=== PATIENT | female | born 1955 | race Caucasian/White ===

== ENCOUNTER 2017-05-04 08:41 | Emergency (ER) | payer BC, OTHER ==
[2017-05-04 09:59] LABS: #Eosinphils 0.1 thou/uL (0.0-0.7); #Lymphocytes 0.5 thou/uL (1.20-3.40); #Monocytes 0.5 thou/uL (0.11-0.59); #Neutrophils 2.8 thou/uL (1.40-6.50); %Eosinophils 2.2 % (0.0-10.0); %Lymphocytes 13.5 % (21.0-51.0); %Monocytes 11.7 % (0.0-10.0); Hematocrit 37.3 % (36.0-47.0); Mean Platelet Volume 7.7 fL (7.4-10.4); Red Blood Cell (RBC) Count 3.76 mill/uL (4.20-5.40); White Blood Cell (WBC) Count 3.9 thou/uL (4.8-10.8)
[2017-05-04 10:24] LABS: Troponin I Less than 0.010 ng/mL (< 0.028)
[2017-05-04 10:28] LABS: ALT (SGPT) 10 U/L (8-55); AST (SGOT) 19 U/L (5-34); Alkaline Phosphatase 46 U/L (40-150); Anion Gap 16 mmol/L (10-20); BUN (Urea Nitrogen) 12 mg/dL (9.8-20.1); Bilirubin, Total 1.1 mg/dL (0.2-1.2); CK (CPK) 52 U/L (29-168); Calc. Creatinine Clearance 0 mL/min (70-130); Carbon Dioxide 24 mmol/L (23-31); Chloride 103 mmol/L (98-107); Estimated GFR-MDRD 76; Globulin 3.5 g/dL (2.4-3.5); Protein, Total 7.3 g/dL (6.0-8.3)
--- NOTE | 2017-05-04 11:42 | RAD ---
AP VIEW CHEST; Date: 05/04/17 HISTORY: Cough. Fever which started yesterday. FINDINGS: Comparison made to previous exam from 12/22/16. AP view of chest demonstrates dual lead intracardiac pacing device. Calcification of the aorta is see n. Lungs are well aerated. No evidence of active intrathoracic disease is noted. No evidence of effus ions, pneumonia, or pneumothorax seen. IMPRESSION: Unremarkable AP view chest. POS: [facility]
[2017-05-04 13:26] LABS: Troponin I Less than 0.010 ng/mL (< 0.028)
--- NOTE | 2017-05-04 13:39 | CT ---
CT ANGIO CHEST WITH CONTRAST: Date: 05/04/17 HISTORY: Dyspnea. COMPARISON: Chest radiograph from same date. CT angiogram of chest from 2009. FINDINGS: Pulmonary trunk, as well as left and right main pulmonary arteries are dilated. Thoracic aorta is non aneurysmal. Heart size enlarged. Numerous hypodensities of the liver appear similar to the comparison examination, although are incompletely evaluated. Numerous mildly prominent mediastinal lymph nodes are similar back to 2010. No pulmonary arterial filling defect. Skeleton is unremarkable aside from mild levoscoliosis. No pneumonia. No focal air space consolidatio n, pneumothorax, or effusion. No suspicious pulmonary nodules. IMPRESSION: 1. No segmental pulmonary arterial filling defect. 2. Cardiomegaly. 3. Pulmonary arterial hypertension. 4. Incompletely evaluated hypodensities throughout the liver appear similar dating back to 2009, [place] a benign process. 5. No evidence for pneumonia or other acute intrathoracic abnormality. 6. Mildly prominent mediastinal lymph nodes are similar to the comparison examination, likely reacti ve and chronic. POS: [facility]
[2017-05-04] MEDS ORDERED: ISOVUE-370 76%-LOCM 1 ML ONE (13:42)
== END 2017-05-04 13:56 | disposition home or self-care (01) ==
LOC: ERS 08:41
DX: J11.1 Influenza due to unidentified influenza virus with other respiratory manifestations (principal); I48.91 Unspecified atrial fibrillation; E03.9 Hypothyroidism, unspecified; J45.909 Unspecified asthma, uncomplicated; F32.9 Major depressive disorder, single episode, unspecified; Z79.899 Other long term (current) drug therapy
CPT/HCPCS: 36415; 71010; 71275; 80053; 82550; 82553; 84484; 85025; 85379; 93005

== ENCOUNTER 2018-05-15 10:17 | Outpatient (CLI) | payer BC, OTHER | END 2018-05-15 10:18 | disposition home or self-care (01) | LOC: BICMAMMO 10:17 | PROVIDERS: ATTEND Family Medicine | DX: Z12.31 Encounter for screening mammogram for malignant neoplasm of breast (principal) | CPT/HCPCS: 77063; 77067 ==

== ENCOUNTER 2018-09-30 20:27 | Observation (INO) | payer BC, OTHER ==
--- NOTE | 2018-09-30 20:55 | RAD ---
AP view chest. HISTORY: Chest pain AP view chest obtained on 09/30/2018. Comparison made to previous exam from 05/04/2017. AP view chest demonstrates a dual-lead intracardiac pacing device. The lungs are well aerated. No sienna dence of active intrathoracic disease seen. No evidence of effusions, pneumonia or pneumothorax seen. IMPRESSION: unremarkable AP view chest.
[2018-09-30] MEDS ORDERED: Nitroglycerin 0.4 MG TAB 1 EACH ONE (21:10)
[2018-09-30 22:12] LABS: #Basophils 0.1 thou/uL (0.0-0.2); #Eosinphils 0.4 thou/uL (0.0-0.7); #Lymphocytes 2.5 thou/uL (1.20-3.40); #Monocytes 0.5 thou/uL (0.11-0.59); %Basophils 1.4 % (0.0-1.0); %Eosinophils 6.6 % (0.0-10.0); %Lymphocytes 38.4 % (21.0-51.0); %Monocytes 7.4 % (0.0-10.0); %Neutrophils 46.3 % (42.0-75.0); Hemoglobin 12.1 g/dL (12.0-16.0); Mean Corpuscular HGB CONC 32.1 g/dL (32.0-36.0); Mean Corpuscular Hemoglobin 31.5 pg (27.0-31.0); Mean Corpuscular Volume 97.9 fL (78.0-98.0); Mean Platelet Volume 7.5 fL (7.4-10.4); Platelet Count 206 thou/uL (130-400); RBC Distribution Width 12.2 % (11.5-14.5); Red Blood Cell (RBC) Count 3.84 mill/uL (4.20-5.40); White Blood Cell (WBC) Count 6.5 thou/uL (4.8-10.8)
[2018-09-30 22:39] LABS: ALT (SGPT) 12 U/L (8-55); AST (SGOT) 18 U/L (5-34); Alkaline Phosphatase 56 U/L (40-150); Anion Gap 11 mmol/L (10-20); BUN (Urea Nitrogen) 14 mg/dL (9.8-20.1); Bilirubin, Total 0.4 mg/dL (0.2-1.2); CK (CPK) 113 U/L (29-168); Calc. Creatinine Clearance 0 mL/min (70-130); Calcium 8.6 mg/dL (7.8-10.44); Carbon Dioxide 27 mmol/L (23-31); Chloride 106 mmol/L (98-107); Estimated GFR-MDRD 77; Globulin 2.6 g/dL (2.4-3.5); Glucose 99 mg/dL (80-115); Magnesium 2.3 mg/dL (1.6-2.6); Potassium 4.1 mmol/L (3.5-5.1); Protein, Total 6.6 g/dL (6.0-8.3); Sodium 140 mmol/L (136-145)
--- NOTE | 2018-09-30 23:16 | PDOC.FPRHP ---
- History of Present Illness Chief Complaint: Chest pain History of Present Illness: This is a 62 yo female with a pmh of atrial fibrillation, hypothyroidism, asthma , who presents to the ed with a cc of chest pain. She states the pain started today when she was running errands. She felt tight in her chest. She states the pain feels like a pressure and is associated with palpitations, SOB, and left ankle swelling. She states that the pain is made worse with movement. She saw Dr. Spear 1 week ago and was started on a new med. Pt is to see Dr. Manley on . Pain is at the upper center of her chest. She states it feels like a "gulp." Denies dizziness or light headedness. She felt the pain was like angina and that is why she came. ED Course: Nitro x2 - Allergies/Adverse Reactions Allergies Allergy/AdvReac Type Severity Reaction Status Date / Time codeine Allergy "itch" Verified 10/01/18 01:04 levofloxacin [From Levaquin] Allergy "hallucinat Verified 10/01/18 01:04 e" - Home Medications Medication Instructions Recorded Confirmed Type Magnesium Gluconate [Magonate] 500 mg PO DAILY 04/20/15 09/30/18 History Pantoprazole Sodium 40 mg PO DAILY 04/20/15 09/30/18 History Levothyroxine Sodium 88 mcg PO DAILY 10/02/15 09/30/18 History Montelukast Sodium 10 mg PO DAILY 10/02/15 09/30/18 History Dicyclomine HCl 10 mg PO DAILY PRN 12/22/16 09/30/18 History Cholecalciferol (Vitamin D3) 3,000 unit PO DAILY 09/30/18 09/30/18 History [Vitamin D3] DULoxetine HCl 30 mg PO DAILY 09/30/18 09/30/18 History Fluticasone/Vilanterol [Breo 1 inh IH DAILY 09/30/18 09/30/18 History Ellipta] Pramipexole Di-HCl [Mirapex] 0.25 mg PO DAILY 09/30/18 09/30/18 History Verapamil HCl [Verapamil ER PM] 300 mg PO HS 09/30/18 09/30/18 History - History PMHx: IBS, hypothyroidism, afib, asthma PSHx: Pacemaker, ablation, cholecystectomy, hiatal hernia repair FHx: noncontributory Social: Denies WAYNE - Review of Systems General: reports: fatigue. denies: fever/chills, weight/appetite/sleep changes Eyes: denies: eye pain, vision changes ENT: denies: nasal congestion, rhinorrhea Respiratory: reports: shortness of breath, exercise intolerance. denies: cough , congestion Cardiovascular: reports: chest pain, palpitation, edema. denies: paroxysmal nocturnal dyspnea Gastrointestinal: denies: nausea, vomiting, diarrhea, constipation Musculoskeletal: denies: pain, tenderness Neurological: denies: syncope, weakness Psychological: denies: anxiety, depression - Vital signs BP: 116/78 HR: 72 RR: 18 Tmax: 97.9 Pox: 98% on ra Wt: 98.8 - Physical Exam Constitutional: NAD, awake, alert and oriented, well developed HEENT: normocephalic and atraumatic, PERRLA, EOMI, grossly normal vision, grossly normal hearing, MMM Neck: supple, FROM, trachea midline, no JVD Chest: no-tender to palpation, no lesions Heart: RRR, normal S1/S2, no murmurs/rubs/gallops, pulses present Lungs: CTAB, no respiratory distress, good air movement Abdomen: soft, non-tender, bowel sounds present, no masses/distention Musculoskeletal: normal tone, ROM grossly normal Neurological: CN II-XII intact Skin: capillary refill <2 seconds Heme/Lymphatic: no unusual bruising or bleeding, no purpura Psychiatric: normal mood and affect, intact recent and remote memory FMR H&P: Results - Labs Result Diagrams: 09/30/18 21:54 09/30/18 21:54 Lab results: WBC 6.5 thou/uL (4.8-10.8) 09/30/18 21:54 Hgb 12.1 g/dL (12.0-16.0) 09/30/18 21:54 Hct 37.6 % (36.0-47.0) 09/30/18 21:54 MCV 97.9 fL (78.0-98.0) 09/30/18 21:54 Plt Count 206 thou/uL (130-400) 09/30/18 21:54 Neutrophils % 46.3 % (42.0-75.0) 09/30/18 21:54 Sodium 140 mmol/L (136-145) 09/30/18 21:54 Potassium 4.1 mmol/L (3.5-5.1) 09/30/18 21:54 Chloride 106 mmol/L (98-107) 09/30/18 21:54 Carbon Dioxide 27 mmol/L (23-31) 09/30/18 21:54 BUN 14 mg/dL (9.8-20.1) 09/30/18 21:54 Creatinine 0.76 mg/dL (0.6-1.1) 09/30/18 21:54 Glucose 99 mg/dL (80-115) 09/30/18 21:54 Calcium 8.6 mg/dL (7.8-10.44) 09/30/18 21:54 Total Bilirubin 0.4 mg/dL (0.2-1.2) 09/30/18 21:54 AST 18 U/L (5-34) 09/30/18 21:54 ALT 12 U/L (8-55) 09/30/18 21:54 Alkaline Phosphatase 56 U/L (40-150) 09/30/18 21:54 Creatine Kinase 113 U/L (29-168) 09/30/18 21:54 B-Natriuretic Peptide 40.6 pg/mL (0-100) 09/30/18 21:54 Serum Total Protein 6.6 g/dL (6.0-8.3) 09/30/18 21:54 Albumin 4.0 g/dL (3.4-4.8) 09/30/18 21:54 - Radiology Interpretation Chest x-ray Status: report reviewed by me (Unremarkable cxr) FMR H&P: A/P - Plan Atypical chest pain, ACS R/O -Admit to tele obs -S/P aspirin -Stress test in the morning -Consider calling Dr. Spear, pts night monitor in the AM -Initial troponin: negative, trend x3 -BNP 40.6 -CXR unremarkable, pacemaker in place -TSH pending Afib -S/P pacemaker, currently paced. -continue home meds Hypothyroidism -TSH pending -Continue home meds IBS -Continue home PRN meds Chronic knee pain Code: Full PCP: [employer] Integrator: Dr. Spear EP: Dr. Manley FMR H&P: Upper Level - Pertinent history HPI 64 y/o F with hypothyroidism with IBS, GERD, AFIB, SHERIF, and depression presenting with chest pain. Started at 1500 and pt took 325mg ASA. Pain, pressure and palpitation described while running errands today. Sees Dr Spear outpatient and recently started Verapamil with EP apt soon. S/p nitro administration in ED. REVIEW OF SYSTEMS: Gen: no fever, chills, or sweats, no unexplained wt change Resp: no cough, no SOB, no wheeze Card: chest pain, no palpitations - Pertinent findings PHYSICAL EXAMINATION: General: NAD, alert and oriented x3, sleepy Heart/Cardiovascular System: No r/m/g. RRR. Cap refill < 3 seconds, good pulses in all extremities Lungs/Respiratory System: clear to auscultation bilaterally. No increased work of breathing. Room air. Troponins neg x1, CMP/CBC/CXR unremarkable. - Plan Date/Time: 09/30/18 2313 Kota Sinclair, have evaluated this patient and agree with findings/plan as outlined by customer marketing intern resident. Pertinent changes/additions are listed here. PROBLEM LISTANDPLAN: # Atypical Chest pain- Negative trops and no ST changes on EKG. Stress test in AM. Pt resting comfortably now. # A-Fib- No acute issues, continue home meds. Has pacemaker with EP appt # Hypothyroidism- TSH pending # Irritable Bowel- No acute issues
[2018-10-01] MEDS ORDERED: Acetaminophen 325 MG TAB PO PRN ×2 (00:40→00:41)
[2018-10-01] MEDS ORDERED: Acetaminophen 650 MG Suppository PR PRN (00:41)
[2018-10-01] MEDS ORDERED: Nitroglycerin 0.4 MG TAB (25 Tab Bottle) PO PRN (00:41)
[2018-10-01] MEDS ORDERED: Dicyclomine 10 MG CAP PO PRN (00:41)
[2018-10-01] MEDS ORDERED: Ondansetron ODT 4 MG TAB PO PRN (00:41)
[2018-10-01 00:57] VITALS: BMI 33.1
[2018-10-01 01:48] LABS: Troponin I Less than 0.010 ng/mL (< 0.028)
[2018-10-01] MEDS ORDERED: Levothyroxine Sodium 88 MCG TAB PO SCH (06:00)
[2018-10-01 06:06] LABS: Troponin I Less than 0.010 ng/mL (< 0.028)
[2018-10-01] MEDS ORDERED: Mometasone/Formoterol 120 PUFF INHALER INH SCH (06:30)
[2018-10-01] MEDS ORDERED: Magnesium Oxide 250 MG TAB PO SCH (09:00)
[2018-10-01] MEDS ORDERED: Aspirin 325 mg Enteric Coated Tablet PO SCH (09:00)
[2018-10-01] MEDS ORDERED: Montelukast Sodium 10 mg Tablet PO SCH (09:00)
[2018-10-01] MEDS ORDERED: Pramipexole Di-HCl 0.25 MG TAB PO SCH (09:00)
[2018-10-01] MEDS ORDERED: Non-Formulary Item 1 EACH (Fluticasone/Vilanterol [Breo Ellipta] 1 INH) IH SCH (09:00)
[2018-10-01] MEDS ORDERED: DULoxetine 30 MG CAP PO SCH (09:00)
[2018-10-01 11:52] VITALS: BP 132/60; TEMP 97.7
--- NOTE | 2018-10-01 11:53 | NM ---
EXAM: CARDIAC SPECT HISTORY: Chest pain, atrial fibrillation TECHNIQUE: A myocardial perfusion scan was performed using the single isotope 1 day protocol with trell hnetium 99m sestamibi. [10 mCi] was injected intravenously for the rest exam followed by 30 mCi for the stress study. Pharmacologic stress with Lexiscan was monitored and interpreted by Tiago Gaines, nurse practitioner. FINDINGS: Homogeneous tracer distribution is seen in the myocardial segments on stress and rest image s without fixed or reversible defects. Gated SPECT LVEF: 78% Wall motion exam: Normal IMPRESSION: Normal myocardial perfusion scan
--- NOTE | 2018-10-01 15:34 | PRG ---
DATE OF SERVICE: 10/01/2018 SUBJECTIVE: I have examined the patient and discussed the case with Dr. Jensen. Briefly, Ms. Regan is a pleasant 62-year-old white female with no prior history of coronary artery disease. She presented with some atypical type chest pain. This started when she was running some errands yesterday. She, at that time, felt some tightness and pressure in her chest. PHYSICAL EXAMINATION: VITAL SIGNS: Her blood pressure is 120/78, her heart rate is 70 and regular, 18 respirations. She is afebrile and has a room air pulse ox of 98%. CARDIAC: Heart, rhythm regular. No gallop or murmur noted. LUNGS: Clear. ABDOMEN: Soft. LABORATORY DATA: White count 6500, hemoglobin 12.1. Her troponins are negative x3. All three being less than 0.01. ASSESSMENT: Atypical chest pain. PLAN: Schedule stress Myoview and proceed. Job ID: [id number]
[2018-10-01] MEDS ORDERED: Regadenoson 0.4 MG/5 ML SYRINGE ONE (16:05)
[2018-10-01] MEDS ORDERED: Verapamil PM 100 MG CAP PO SCH (21:00)
--- NOTE | 2018-10-02 14:04 | DIS ---
DATE OF ADMISSION: 10/01/2018 DATE OF DISCHARGE: 10/01/2018 ADMITTING ATTENDING: Dr. Gera Sanford. DISCHARGE ATTENDING: Dr. Gera Sanford. RESIDENT: Venkatesh Guerra DO. CONSULTS: None. PROCEDURES: None. IMAGIN. Chest x-ray significant for no acute cardiopulmonary process. 2. Nuclear medicine stress test significant for normal myocardial perfusion scan. DISCHARGE DIAGNOSES: 1. Pantoprazole 40 mg p.o. daily. 2. Magnesium 500 mg p.o. daily. 3. Levothyroxine 88 mcg p.o. daily. 4. Montelukast 10 mg p.o. daily. 5. Dicyclomine 10 mg p.o. daily. 6. Verapamil 300 mg p.o. at bedtime. 7. Breo one inhaler inhaled daily. 8. Duloxetine 30 mg p.o. daily. 9. Vitamin D3 of 3000 units p.o. daily. 10. Mirapex 0.25 mg p.o. daily. PRIMARY DIAGNOSIS: Atypical chest pain. SECONDARY DIAGNOSES: 1. Atrial fibrillation. 2. Hypothyroid. 3. Irritable bowel syndrome. 4. Chronic knee pain. HOSPITAL COURSE: A 62-year-old female with past medical history of atrial fibrillation, hypothyroid, asthma, presents to the emergency department with an atypical chest pain story. She reported at time of admission that the pain started earlier that day, tightness in her chest with palpitations, shortness of breath, left ankle swelling. Reports the pain is made worse by movement. She has recently seen Dr. Spear, Cardiology and Dr. Manley of Electrophysiology for similar type complaints with no changes in medication. She received nitroglycerin x2 in the emergency department with resolution of her pain. Troponins remained negative x3. EKG within normal limits. The patient underwent nuclear medicine stress and tolerated that well, negative study. She was deemed stable for discharge home with close followup by PCP. DISCHARGE INSTRUCTIONS: 1. Location: Home. 2. Activity: As tolerated. 3. Diet: Heart healthy, low-sodium. 4. Follow up with PCP immediately in the next 3 to 7 days and, Cardiology Dr. Bijan Spear in the next month. Job ID: [id number]
== END 2018-10-01 13:37 | disposition home or self-care (01) ==
LOC: ERS 20:27 → 2SW 10-01 00:31
PROVIDERS: ADMIT Hospitalist; ATTEND Hospitalist
DX: R07.89 Other chest pain (principal); I48.91 Unspecified atrial fibrillation; E03.9 Hypothyroidism, unspecified; J45.909 Unspecified asthma, uncomplicated; K58.9 Irritable bowel syndrome, unspecified; G89.29 Other chronic pain; M25.569 Pain in unspecified knee; Z79.899 Other long term (current) drug therapy; Z88.1 Allergy status to other antibiotic agents; Z88.5 Allergy status to narcotic agent; Z95.0 Presence of cardiac pacemaker
CPT/HCPCS: 36415; 71045; 78452; 80053; 80061; 82550; 83735; 83880; 84443; 84484; 85025; 93005; 93017; A9500; G0378; J2785

== ENCOUNTER 2018-11-26 13:02 | Outpatient (CLI) | payer BC, OTHER ==
--- NOTE | 2018-11-26 14:01 | ULT ---
ULTRASOUND THYROID: Date: 11/26/18 HISTORY: Hypothyroidism. COMPARISON: None. FINDINGS: Isthmus is enlarged, measuring 6 mm in AP dimension. Right lobe measures 4.6 x 1.8 x 2.3 cm. Left lob e measures 3.2 x 1.3 x 1.6 cm. The background echotexture is very lobular and heterogeneous. Large in ternal fibrous septations. Within the inferior right lobe of the thyroid is a nodule which is solid a nd hypoechoic, wider than tall, measuring 0.9 x 0.7 x 0.8 cm, with well-defined margins without isoec hoic foci. This is TI-RADS 3 - Mildly suspicious. Given its small size, no follow-up or aspiration is required. IMPRESSION: 1. Heterogeneous thyroid with large internal fibrous septations has the appearance of burned-out hyp erthyroidism. 2. Small nodule inferior right lobe of thyroid, does not require aspiration or follow-up per TI-RADS criteria. POS: HOME
== END 2018-11-26 13:03 | disposition home or self-care (01) ==
LOC: SCSULT 13:02
PROVIDERS: ATTEND Internal Medicine Hospice and Palliative Medicine
DX: E03.9 Hypothyroidism, unspecified (principal); R94.6 Abnormal results of thyroid function studies; E04.1 Nontoxic single thyroid nodule
CPT/HCPCS: 76536

== ENCOUNTER 2019-04-17 08:37 | Outpatient (CLI) | payer BC, OTHER ==
--- NOTE | 2019-04-17 12:57 | CT ---
CT ABDOMEN AND PELVIS WITH AND WITHOUT IV CONTRAST: HISTORY: History of back pain radiating to both hips and abdominal bloating with tenderness in the anterior ab domen. Abdominal pain. COMPARISON: 05/17/2016 FINDINGS: The lung bases are clear. Changes of cholecystectomy are again seen. Multiple cysts throughout the li long are again noted. The spleen, pancreas, adrenal glands and kidneys are normal. No calculi are seen in the kidneys, ureters or urinary bladder. No hydroureteronephrosis is seen on either side. No free air, free fluid or lymphadenopathy is seen in the abdomen or pelvis. There are vascular calci fications without evidence of aneurysmal dilatation of the abdominal aorta. There are mild degenerati ve changes in the spine. A small hiatal hernia is again seen. IMPRESSION: 1. Stable examination. No acute process. 2. A small, fat-containing umbilical hernia is noted. POS: [facility]
== END 2019-04-17 08:38 | disposition home or self-care (01) ==
LOC: SCSCT 08:37
PROVIDERS: ATTEND Family Medicine
DX: R10.9 Unspecified abdominal pain (principal); M53.3 Sacrococcygeal disorders, not elsewhere classified; K42.9 Umbilical hernia without obstruction or gangrene
CPT/HCPCS: 74178; 82565

== ENCOUNTER 2019-12-03 09:34 | Outpatient (CLI) | payer BC ==
--- NOTE | 2019-12-03 12:13 | RAD ---
Esophagram air contrast HISTORY: Dysphagia. Prior Duong fundoplication. Esophageal dilatation. Air contrast and single column barium evaluation shows a very small sliding hiatal hernia. Postoperat crissy changes at the GE junction consistent with prior Duong fundoplication. Early in the exam, the GE junction appears to be widely patent with liquid. A 12 mm barium tablet, ho wever, lodged just at the GE junction for up to 45 minutes. Fluid then became obstructed at the impacted tablet. There were then severe nonpropulsive tertiary type contractions of the esophagus. IMPRESSION : Very small hiatal hernia. Schatzki's ring initially allowed easy passage of liquid, but a 12 mm bariu m tablet became severely obstructive and lodged at the ring, so that even fluid could not pass for up to 45 minutes.
== END 2019-12-03 09:35 | disposition home or self-care (01) ==
LOC: RAD 09:34
PROVIDERS: ATTEND Physician Assistant Medical
DX: R13.10 Dysphagia, unspecified (principal); K22.2 Esophageal obstruction; K44.9 Diaphragmatic hernia without obstruction or gangrene
CPT/HCPCS: 74220

== ENCOUNTER 2020-01-25 09:42 | Outpatient (CLI) | payer BC ==
--- NOTE | 2020-01-25 18:36 | RAD ---
4 views of the sacroiliac joints: 01/25/2020 COMPARISON: None available HISTORY: Back pain FINDINGS: No widening of the sacroiliac joints. There is mild degenerative change involving bilateral sacroiliac joints with inferior osteophyte formation. No erosive change. IMPRESSION: No acute findings.
== END 2020-01-25 09:43 | disposition home or self-care (01) ==
LOC: SCSRAD 09:42
PROVIDERS: ATTEND Internal Medicine Rheumatology
DX: M46.1 Sacroiliitis, not elsewhere classified (principal)
CPT/HCPCS: 72202

== ENCOUNTER 2020-03-03 13:42 | Outpatient (CLI) | payer BC ==
--- NOTE | 2020-03-03 14:13 | RAD ---
EXAM: Two views chest PROVIDED CLINICAL HISTORY: Cough and chest pressure for past week. COMPARISON: 08/11/2019 FINDINGS: Dual lead left subclavian cardiac pacemaking device remains in place. Cardiac silhouette is at the up per limits of normal in size. Pulmonary vasculature is within normal limits The lungs are clear. Mild left convex curvature of the thoracic spine is again noted. Vascular calcifications are again se en in the thoracic aorta. Surgical clips overlie the upper abdomen. IMPRESSION: No acute cardiopulmonary process.
== END 2020-03-03 13:43 | disposition home or self-care (01) ==
LOC: SCSRAD 13:42
PROVIDERS: ATTEND Family Medicine
DX: R05 Cough (principal)
CPT/HCPCS: 71046

== ENCOUNTER 2020-06-10 11:11 | Outpatient (CLI) | payer OTHER | END 2020-06-10 11:12 | disposition home or self-care (01) | LOC: DTY/OP 11:11 | PROVIDERS: ATTEND Family Medicine | DX: E66.9 Obesity, unspecified (principal) | CPT/HCPCS: 97802 ==

== ENCOUNTER 2020-10-20 10:44 | Emergency (ER) | payer OTHER, BC ==
[2020-10-20 11:59] LABS: #Basophils 0.1 thou/uL (0.0-0.2); #Eosinphils 0.3 thou/uL (0.0-0.7); #Monocytes 0.6 thou/uL (0.11-0.59); #Neutrophils 4.4 thou/uL (1.40-6.50); %Basophils 1.3 % (0.0-1.0); %Eosinophils 4.5 % (0.0-10.0); %Monocytes 7.9 % (0.0-10.0); %Neutrophils 59.3 % (42.0-75.0); Hemoglobin 13.5 g/dL (12.0-16.0); Mean Corpuscular Hemoglobin 32.5 pg (27.0-31.0); Mean Platelet Volume 7.4 fL (7.4-10.4); Platelet Count 234 thou/uL (130-400); RBC Distribution Width 11.6 % (11.5-14.5); Red Blood Cell (RBC) Count 4.17 mill/uL (4.20-5.40); White Blood Cell (WBC) Count 7.4 thou/uL (4.8-10.8)
[2020-10-20 12:21] LABS: ALT (SGPT) 12 U/L (8-55); AST (SGOT) 15 U/L (5-34); Alkaline Phosphatase 46 U/L (40-110); Anion Gap 9 mmol/L (10-20); BUN (Urea Nitrogen) 16 mg/dL (9.8-20.1); Calc. Creatinine Clearance 0 mL/min (70-130); Calcium 9.2 mg/dL (7.8-10.44); Carbon Dioxide 27 mmol/L (23-31); Chloride 105 mmol/L (98-107); Globulin 3.6 g/dL (2.4-3.5); Glucose 88 mg/dL (80-115); Lipase 26 U/L (8-78); Potassium 3.8 mmol/L (3.5-5.1); Protein, Total 7.6 g/dL (5.8-8.1); Sodium 137 mmol/L (136-145)
[2020-10-20] MEDS ORDERED: Aspirin Chewable 81 MG TAB ONE (13:13)
[2020-10-20] MEDS ORDERED: Nitroglycerin 2% Ointment 1 INCH/1 GM Packet ONE (13:13)
[2020-10-20] MEDS ORDERED: Fentanyl 100 MCG/2 ML VIAL ONE (13:13)
== END 2020-10-20 15:25 | disposition short-term general hospital (02) ==
LOC: ERS 10:44
DX: I20.0 Unstable angina (principal); I48.91 Unspecified atrial fibrillation; E03.9 Hypothyroidism, unspecified; Z79.899 Other long term (current) drug therapy
CPT/HCPCS: 71045; 80053; 83690; 84484; 85025; 93005; 94760; 96374; J3010

== ENCOUNTER 2021-03-30 09:13 | Outpatient (CLI) | payer OTHER, MEDICARE | END 2021-03-30 09:14 | disposition home or self-care (01) | LOC: NM 09:13 | DX: M84.374A Stress fracture, right foot, initial encounter for fracture (principal) | CPT/HCPCS: 78315; A9503 ==

== ENCOUNTER 2021-09-08 11:00 | Outpatient (CLI) | payer BC, MEDICARE ==
[2021-09-08 12:05] LABS: #Basophils 0.1 10x3/uL (0.0-0.2); #Eosinphils 0.2 10x3/uL (0.0-0.5); #Monocytes 0.6 10x3/uL (0.0-1.1); #Neutrophils 3.7 10x3/uL (1.5-8.4); %Basophils 1.1 % (0.0-2.0); %Eosinophils 3.5 % (0.0-6.0); %Lymphocytes 27.4 % (18.0-47.0); %Monocytes 9.2 % (0.0-10.0); %Neutrophils 58.5 % (40.0-75.0); Hemoglobin 12.5 g/dL (12.0-15.5); Mean Corpuscular HGB CONC 33.2 g/dL (32.0-36.0); Mean Corpuscular Hemoglobin 31.3 pg (27.0-33.0); Mean Platelet Volume 10.3 fl (7.4-10.4); Platelet Count 220 10x3/uL (150-450); RBC Distribution Width 12.8 % (11.5-14.5); White Blood Cell (WBC) Count 6.3 10x3/uL (3.5-10.5)
[2021-09-08 22:54] LABS: SARS-CoV-2 PCR by NAA Not Detected (NotDetected)
== END 2021-09-08 11:01 | disposition home or self-care (01) ==
LOC: LABBT 11:00
PROVIDERS: ATTEND Surgery
DX: Z01.818 Encounter for other preprocedural examination (principal); K22.2 Esophageal obstruction; Z20.822 Contact with and (suspected) exposure to COVID-19
CPT/HCPCS: 85025; 93005; 93010; U0003; U0005

== ENCOUNTER 2021-09-13 08:12 | Inpatient (IN) | payer BC, MEDICARE ==
[2021-09-08 13:44] VITALS: BMI 31.9
[2021-09-13] MEDS ORDERED: Bupivacaine 0.25% 10 ML VIAL ONE (11:08)
[2021-09-13] MEDS ORDERED: Lidocaine 1% w/Epinephrine 1:100K 20 ML VIAL ONE (11:09)
[2021-09-13] MEDS ORDERED: SUGAMMADEX SODIUM 200 MG/2 ML VIAL ONE (11:52)
[2021-09-13] MEDS ORDERED: ceFAZolin (BATCH) 2 GM/100 ML BAG ONE (11:52)
[2021-09-13] MEDS ORDERED: fentaNYL Citrate/PF 100 MCG/2 ML SYRINGE ONE ×2 (11:52→13:03)
[2021-09-13] MEDS ORDERED: Famotidine/PF 20 mg/2ml Vial ONE (11:52)
[2021-09-13] MEDS ORDERED: Metoclopramide HCl 10 MG/2 ML VIAL ONE (11:58)
[2021-09-13] MEDS ORDERED: PHENYLEPHRINE-NS 100 MCG/ML 10 ML SYRINGE ONE (11:58)
[2021-09-13] MEDS ORDERED: Ketorolac Tromethamine 30 MG/ML VIAL ONE (11:58)
[2021-09-13] MEDS ORDERED: Lidocaine 1% PF 5 ML VIAL ONE (11:58)
[2021-09-13] MEDS ORDERED: PROPOFOL 200 MG/20 ML VIAL ONE (11:58)
[2021-09-13] MEDS ORDERED: Rocuronium Bromide 10 MG/ML (10ML VIAL) ONE (11:58)
[2021-09-13] MEDS ORDERED: Dexamethasone 20 MG/5 ML VIAL ONE (11:58)
[2021-09-13] MEDS ORDERED: Ondansetron PF 4 MG/2 ML Vial ONE (11:58)
[2021-09-13] MEDS ORDERED: Dextrose 5% in Water 1,000 ML IV PRN (13:41)
[2021-09-13] MEDS ORDERED: Promethazine HCl 25 MG/ML VIAL IM PRN ×2 (13:41→13:55)
[2021-09-13] MEDS ORDERED: Hydrocodone-Acetamin 15 ML UDCUP PO PRN (13:41)
[2021-09-13] MEDS ORDERED: Morphine 2 MG/ML VIAL SLOW IVP PRN (13:41)
[2021-09-13] MEDS ORDERED: Ondansetron PF 4 MG/2 ML Vial IVP PRN (13:41)
[2021-09-13] MEDS ORDERED: diphenhydrAMINE 50 MG/ML VIAL IVP PRN (13:41)
[2021-09-13] MEDS ORDERED: hydrALAZINE 20 MG/ML VIAL SLOW IVP PRN (13:41)
[2021-09-13] MEDS ORDERED: Morphine 4 MG/ML VIAL SLOW IVP PRN (13:41)
[2021-09-13] MEDS ORDERED: Dextrose 50% Abboject 50 ML SYRINGE SLOW IVP PRN (13:41)
[2021-09-13] MEDS ORDERED: Fentanyl 100 MCG/2 ML VIAL ONE ×2 (13:54→14:28)
[2021-09-13] MEDS ORDERED: Promethazine HCl 25 MG/ML VIAL IVPB PRN (13:55)
[2021-09-13] MEDS ORDERED: Meperidine HCl/PF 25 MG/ML VIAL SLOW IVP PRN (13:55)
[2021-09-13] MEDS ORDERED: Ondansetron HCl/PF 4 MG/2 ML Vial IVP PRN (13:55)
[2021-09-13] MEDS ORDERED: D5 1/2 NS w/20 mEq KCL 1,000 ML ONE (14:10)
[2021-09-13] MEDS: D5 1/2 NS w/20 mEq KCL 1,000 ML IV SCH (14:16)
[2021-09-13] MEDS: Ketorolac Tromethamine 30 MG/ML VIAL IVP SCH (17:53)
[2021-09-13] MEDS: ceFAZolin (BATCH) 2 GM in Premix Bag 1 BAG IVPB SCH (20:11)
[2021-09-14] MEDS: D5 1/2 NS w/20 mEq KCL 1,000 ML IV SCH ×2 (00:18→05:50)
[2021-09-14] MEDS: Ketorolac Tromethamine 30 MG/ML VIAL IVP SCH ×2 (00:35→05:51)
[2021-09-14] MEDS: ceFAZolin (BATCH) 2 GM in Premix Bag 1 BAG IVPB SCH (04:53)
[2021-09-14 05:20] LABS: #Lymphocytes 1.3 thou/uL (1.20-3.40); #Monocytes 0.6 thou/uL (0.11-0.59); %Basophils 0.3 % (0.0-1.0); %Eosinophils 0.3 % (0.0-10.0); %Lymphocytes 16.1 % (21.0-51.0); %Monocytes 7.1 % (0.0-10.0); %Neutrophils 76.1 % (42.0-75.0); Hemoglobin 12.1 g/dL (12.0-16.0); Mean Corpuscular HGB CONC 32.7 g/dL (32.0-36.0); Mean Corpuscular Hemoglobin 32.7 pg (27.0-31.0); Mean Platelet Volume 7.3 fL (7.4-10.4); Platelet Count 221 thou/uL (130-400); RBC Distribution Width 11.8 % (11.5-14.5); White Blood Cell (WBC) Count 7.8 thou/uL (4.8-10.8)
[2021-09-14 05:42] LABS: Anion Gap 12 mmol/L (10-20); BUN (Urea Nitrogen) 14 mg/dL (9.8-20.1); Calc. Creatinine Clearance 128 mL/min (70-130); Carbon Dioxide 23 mmol/L (23-31); Chloride 106 mmol/L (98-107); Glucose 102 mg/dL (80-115); Potassium 3.9 mmol/L (3.5-5.1); Sodium 137 mmol/L (136-145)
[2021-09-14 08:03] VITALS: BP 104/66; TEMP 98
[2021-09-14] MEDS ORDERED: Pantoprazole 40 MG VIAL IVP SCH (09:00)
[2021-09-14] MEDS ORDERED: Enoxaparin Sodium 40 MG/0.4 ML SYRINGE SC SCH (09:00)
== END 2021-09-14 11:15 | disposition home or self-care (01) | DRG 328 ==
LOC: SDC 08:12 → SJJU 13:41
PROVIDERS: ADMIT Surgery; ATTEND Surgery
PROC: 0DV44ZZ Restriction of Esophagogastric Junction, Percutaneous Endoscopic Approach (ICD-10-PCS; principal; 2021-09-13)
PROC: 0DJ08ZZ Inspection of Upper Intestinal Tract, Via Natural or Artificial Opening Endoscopic (ICD-10-PCS; 2021-09-13)
DX: K31.1 Adult hypertrophic pyloric stenosis (principal); K22.2 Esophageal obstruction; Z79.899 Other long term (current) drug therapy; Z79.890 Hormone replacement therapy; Z88.1 Allergy status to other antibiotic agents; Z88.5 Allergy status to narcotic agent
CPT/HCPCS: 36415; 80048; 85025; C9113; J0690; J1100; J1650; J1885; J2405; J2704; J2765; J3010; J3480; S0020; S0028

== ENCOUNTER 2021-11-09 15:29 | Outpatient (CLI) | payer BC, MEDICARE | END 2021-11-09 15:30 | disposition home or self-care (01) | LOC: SCSRAD 15:29 | PROVIDERS: ATTEND Family Medicine | DX: J98.4 Other disorders of lung (principal) | CPT/HCPCS: 71046 ==

== ENCOUNTER 2022-06-20 07:41 | Outpatient (CLI) | payer BC, MEDICARE | END 2022-06-20 07:42 | disposition home or self-care (01) | LOC: NM 07:41 | PROVIDERS: ATTEND Internal Medicine Gastroenterology | DX: K21.9 Gastro-esophageal reflux disease without esophagitis (principal); K30 Functional dyspepsia | CPT/HCPCS: 78264; A9541 ==

== ENCOUNTER 2022-07-19 12:33 | Outpatient (CLI) | payer BC, MEDICARE | END 2022-07-19 12:34 | disposition home or self-care (01) | LOC: SCSRAD 12:33 | PROVIDERS: ATTEND Internal Medicine Rheumatology | DX: M81.0 Age-related osteoporosis without current pathological fracture (principal); M47.814 Spondylosis without myelopathy or radiculopathy, thoracic region; M51.34 Other intervertebral disc degeneration, thoracic region; M25.78 Osteophyte, vertebrae; M41.9 Scoliosis, unspecified; I70.0 Atherosclerosis of aorta; Z95.0 Presence of cardiac pacemaker | CPT/HCPCS: 72072 ==

== ENCOUNTER 2022-08-20 11:40 | Outpatient (CLI) | payer MEDICARE, OTHER ==
[2022-08-20 13:57] LABS: Anion Gap 17 mmol/L (10-20); BUN (Urea Nitrogen) 24 mg/dL (9.8-20.1); Calc. Creatinine Clearance 0 mL/min (70-130); Calcium 8.8 mg/dL (7.8-10.44); Carbon Dioxide 25 mmol/L (23-31); Chloride 96 mmol/L (98-107); Estimated GFR 39; Glucose 79 mg/dL (80-115); Potassium 4.1 mmol/L (3.5-5.1); Protein, Total 7.3 g/dL (5.8-8.1); Sodium 134 mmol/L (136-145)
[2022-08-20 13:58] LABS: ALT (SGPT) 13 U/L (8-55); AST (SGOT) 20 U/L (5-34); Alkaline Phosphatase 49 U/L (40-110); Globulin 3.3 g/dL (2.4-3.5)
[2022-08-20 14:03] LABS: #Basophils 0.1 10x3/uL (0.0-0.2); #Eosinphils 0.2 10x3/uL (0.0-0.5); #Monocytes 0.4 10x3/uL (0.0-1.1); #Neutrophils 3.8 10x3/uL (1.5-8.4); %Basophils 1.7 % (0.0-2.0); %Eosinophils 3.3 % (0.0-6.0); %Lymphocytes 31.2 % (18.0-47.0); %Monocytes 6.3 % (0.0-10.0); %Neutrophils 56.4 % (40.0-75.0); Hemoglobin 11.6 g/dL (12.0-15.5); Mean Corpuscular HGB CONC 32.4 g/dL (32.0-36.0); Mean Corpuscular Hemoglobin 31.8 pg (27.0-33.0); Mean Corpuscular Volume 98.1 fl (81.6-98.3); Platelet Count 277 10x3/uL (150-450); RBC Distribution Width 12.9 % (11.5-14.5); Red Blood Cell (RBC) Count 3.65 10x6/uL (3.90-5.03); White Blood Cell (WBC) Count 6.7 10x3/uL (3.5-10.5)
== END 2022-08-20 11:41 | disposition home or self-care (01) ==
LOC: LABBT 11:40
PROVIDERS: ATTEND Surgery
DX: Z01.818 Encounter for other preprocedural examination (principal); K30 Functional dyspepsia; K31.84 Gastroparesis; K31.89 Other diseases of stomach and duodenum
CPT/HCPCS: 80053; 85025; 93005; 93010

== ENCOUNTER 2022-08-20 12:15 | Inpatient (IN) | payer MEDICARE, OTHER ==
[2022-08-22] MEDS ORDERED: Bupivacaine/Epinephrine 0.25% 30 ML VIAL ONE (06:51)
[2022-08-22] MEDS ORDERED: Midazolam HCl 2 mg/2 ml Vial ONE (07:00)
[2022-08-22] MEDS ORDERED: Fentanyl 250 MCG/5 ML VIAL ONE (07:00)
[2022-08-22] MEDS ORDERED: HYDROmorphone 0.5 MG/0.5 ML SYRINGE ONE (07:01)
[2022-08-22] MEDS ORDERED: Lidocaine 4% Topical Sol 50 ML BOT ONE (07:01)
[2022-08-22] MEDS ORDERED: SUGAMMADEX SODIUM 200 MG/2 ML VIAL ONE (07:01)
[2022-08-22] MEDS ORDERED: CEFAZOLIN 2 GM VIAL ONE (07:25)
[2022-08-22] MEDS ORDERED: Sodium Chloride 0.9% 100 ML ONE (07:25)
[2022-08-22] MEDS ORDERED: Famotidine/PF 20 mg/2ml Vial ONE (07:28)
[2022-08-22] MEDS ORDERED: Metoclopramide HCl 10 MG/2 ML VIAL ONE (07:44)
[2022-08-22] MEDS ORDERED: Phenylephrine 10 MG/ML VIAL ONE (07:44)
[2022-08-22] MEDS ORDERED: PROPOFOL 200 MG/20 ML VIAL ONE (07:44)
[2022-08-22] MEDS ORDERED: NEOSTIGMINE 3 MG/3 ML SYR 3 MG/3 ML SYRINGE ONE (07:44)
[2022-08-22] MEDS ORDERED: Lidocaine 1% PF 5 ML VIAL ONE (07:44)
[2022-08-22] MEDS ORDERED: Vecuronium 10 MG VIAL ONE (07:44)
[2022-08-22] MEDS ORDERED: Ondansetron PF 4 MG/2 ML Vial ONE ×2 (07:44→11:20)
[2022-08-22] MEDS ORDERED: Rocuronium Bromide 10 MG/ML (10ML VIAL) ONE (07:44)
[2022-08-22] MEDS ORDERED: Dexamethasone 20 MG/5 ML VIAL ONE (07:44)
[2022-08-22] MEDS ORDERED: GLYCOPYRROLATE/PF 0.2 MG/ML VIAL ONE (07:44)
[2022-08-22] MEDS ORDERED: Promethazine HCl 25 MG/ML VIAL ONE (10:34)
[2022-08-22] MEDS ORDERED: Ipratropium/Albuterol 3 ML NEB NEB PRN (10:36)
[2022-08-22] MEDS ORDERED: Dextrose 5% in Water 1,000 ML IV PRN (10:36)
[2022-08-22] MEDS ORDERED: Morphine 4 MG/ML VIAL SLOW IVP PRN (10:36)
[2022-08-22] MEDS ORDERED: Ondansetron PF 4 MG/2 ML Vial IVP PRN (10:36)
[2022-08-22] MEDS ORDERED: Morphine 2 MG/ML VIAL SLOW IVP PRN (10:36)
[2022-08-22] MEDS ORDERED: Promethazine HCl 25 MG/ML VIAL IM PRN (10:36)
[2022-08-22] MEDS ORDERED: Dextrose 50% Abboject 50 ML SYRINGE SLOW IVP PRN (10:36)
[2022-08-22] MEDS ORDERED: diphenhydrAMINE 50 MG/ML VIAL IVP PRN (10:36)
[2022-08-22] MEDS ORDERED: hydrALAZINE 20 MG/ML VIAL SLOW IVP PRN (10:36)
[2022-08-22] MEDS ORDERED: Hydrocodone-Acetamin 15 ML UDCUP PO PRN (10:36)
[2022-08-22] MEDS ORDERED: fentaNYL 50 mcg/mL 1 mL Vial ONE ×3 (10:40→12:22)
[2022-08-22] MEDS ORDERED: Non-Formulary Medication 1 EACH PO PRN (10:54)
[2022-08-22] MEDS ORDERED: Ondansetron HCl/PF 4 MG/2 ML Vial IVP PRN (11:00)
[2022-08-22] MEDS ORDERED: Promethazine HCl 25 MG/ML VIAL IM/IV PRN (11:00)
[2022-08-22] MEDS ORDERED: diphenhydrAMINE 50 MG/ML VIAL ONE (12:09)
[2022-08-22] MEDS ORDERED: D5 1/2 NS w/20 mEq KCL 1,000 ML ONE (12:22)
[2022-08-22] MEDS: D5 1/2 NS w/20 mEq KCL 1,000 ML IV SCH ×3 (13:59→21:45)
[2022-08-22] MEDS: CEFAZOLIN 2 GM in Sodium Chloride 0.9% 100 ML IVPB SCH ×2 (14:12→21:45)
[2022-08-22] MEDS: Ketorolac Tromethamine 30 MG/ML VIAL IVP SCH ×3 (14:12→23:42)
[2022-08-22] MEDS ORDERED: Artificial Tear Sol 15 ML BOT EA EYE PRN (16:51)
[2022-08-22] MEDS ORDERED: Sodium Chloride 0.9% 1,000 ML IV SCH (20:00)
[2022-08-22 20:15] LABS: Hemoglobin 10.8 g/dL (12.0-16.0)
[2022-08-22 22:03] LABS: Actual Bicarbonate (HCO3v) 23 mEq/L (22-28); Base Excess -0.8 mEq/L (-2.0 to +3.0); Chloride (VBG) 101 mmol/L (98-106); Hemoglobin (Hb) 11.5 g/dL (11.7-16.1); Potassium (VBG) 3.85 mmol/L (3.70-5.30); Sodium 133.8 mmol/L (133-146); pH (venous) 7.43 (7.32-7.43)
[2022-08-22 22:24] LABS: Lactic Acid 1.7 mmol/L (0.5-2.2)
[2022-08-22] MEDS ORDERED: Sodium Chloride 0.9% 500 ML IV SCH (22:30)
[2022-08-22 22:35] LABS: ALT (SGPT) 20 U/L (8-55); AST (SGOT) 36 U/L (5-34); Albumin 3.3 g/dL (3.4-4.8); Alkaline Phosphatase 38 U/L (40-110); Anion Gap 16 mmol/L (10-20); BUN (Urea Nitrogen) 25 mg/dL (9.8-20.1); Bilirubin, Total 0.6 mg/dL (0.2-1.2); Calc. Creatinine Clearance 57 mL/min (70-130); Calcium 7.8 mg/dL (7.8-10.44); Carbon Dioxide 19 mmol/L (23-31); Chloride 103 mmol/L (98-107); Estimated GFR 41; Globulin 2.9 g/dL (2.4-3.5); Glucose 135 mg/dL (80-115); Potassium 3.8 mmol/L (3.5-5.1); Protein, Total 6.2 g/dL (5.8-8.1); Sodium 134 mmol/L (136-145)
[2022-08-22] MEDS ORDERED: NOREPINEPHRINE 8 MG/250 ML-D5W 250 ML IVPB SCH (23:45)
[2022-08-22] MEDS ORDERED: Albumin 25% 25 GM/100 ML BOT IVPB SCH (23:45)
[2022-08-23 01:25] VITALS: BMI 31.6
[2022-08-23 03:35] LABS: #Lymphocytes 1.4 thou/uL (1.20-3.40); #Monocytes 0.7 thou/uL (0.11-0.59); #Neutrophils 7.3 thou/uL (1.40-6.50); %Basophils 0.1 % (0.0-1.0); %Eosinophils 0.3 % (0.0-10.0); %Lymphocytes 14.6 % (21.0-51.0); %Monocytes 7.2 % (0.0-10.0); %Neutrophils 77.8 % (42.0-75.0); Hemoglobin 9.2 g/dL (12.0-16.0); Mean Corpuscular HGB CONC 34.2 g/dL (32.0-36.0); Mean Corpuscular Volume 99.3 fl (78.0-98.0); Mean Platelet Volume 9.4 fL (7.4-10.4); Platelet Count 222 10x3/uL (130-400); RBC Distribution Width 11.7 % (11.5-14.5); Red Blood Cell (RBC) Count 2.71 mill/uL (4.20-5.40); White Blood Cell (WBC) Count 9.3 10x3/uL (4.8-10.8)
[2022-08-23 04:12] LABS: Anion Gap 14 mmol/L (10-20); BUN (Urea Nitrogen) 23 mg/dL (9.8-20.1); Calc. Creatinine Clearance 58 mL/min (70-130); Calcium 7.4 mg/dL (7.8-10.44); Carbon Dioxide 19 mmol/L (23-31); Chloride 105 mmol/L (98-107); Estimated GFR 41; Glucose 160 mg/dL (80-115); Magnesium 2.1 mg/dL (1.6-2.6); Potassium 4.3 mmol/L (3.5-5.1); Sodium 134 mmol/L (136-145)
[2022-08-23] MEDS: Levothyroxine Sodium 112 MCG TAB PO SCH (05:14)
[2022-08-23] MEDS: Ketorolac Tromethamine 30 MG/ML VIAL IVP SCH ×4 (05:14→23:30)
[2022-08-23] MEDS: D5 1/2 NS w/20 mEq KCL 1,000 ML IV SCH (05:15)
[2022-08-23] MEDS: Pantoprazole 40 MG VIAL IVP SCH (08:17)
[2022-08-23 08:44] LABS: Hemoglobin 9.7 g/dL (12.0-16.0)
[2022-08-23] MEDS: Dextrose 5 % And 0.9 % NaCl 1,000 ML IV SCH ×3 (09:55→23:30)
[2022-08-23 14:07] LABS: Hemoglobin 9.6 g/dL (12.0-16.0)
[2022-08-23] MEDS ORDERED: Sodium Chloride 0.9% 500 ML IV SCH (15:00)
[2022-08-23] MEDS ORDERED: Dexamethasone 4 mg/ml Vial SLOW IVP SCH (15:45)
[2022-08-23 20:03] LABS: Hemoglobin 9.8 g/dL (12.0-16.0)
[2022-08-24 02:49] LABS: Hemoglobin 9.1 g/dL (12.0-16.0)
[2022-08-24] MEDS: Ketorolac Tromethamine 30 MG/ML VIAL IVP SCH ×4 (05:39→23:36)
[2022-08-24] MEDS: Levothyroxine Sodium 112 MCG TAB PO SCH (05:39)
[2022-08-24 07:29] LABS: Hemoglobin 8.6 g/dL (12.0-16.0)
[2022-08-24] MEDS: Dextrose 5 % And 0.9 % NaCl 1,000 ML IV SCH ×2 (09:41→16:41)
[2022-08-24] MEDS: Pantoprazole 40 MG VIAL IVP SCH (10:17)
[2022-08-24] MEDS ORDERED: Lactated Ringer's 500 ML IV SCH (13:00)
[2022-08-24] MEDS ORDERED: Dextrose 5 % And 0.9 % NaCl 1,000 ML IV SCH (17:15)
[2022-08-24] MEDS ORDERED: Midodrine HCl 5 MG TAB PO SCH (22:30)
[2022-08-24] MEDS ORDERED: Sodium Chloride 0.9% 500 ML IV SCH (22:30)
[2022-08-24] MEDS ORDERED: Dexamethasone 4 mg/ml Vial SLOW IVP SCH (23:45)
[2022-08-25 04:07] LABS: #Eosinphils 0.3 thou/uL (0.0-0.7); #Lymphocytes 1.3 thou/uL (1.20-3.40); #Monocytes 0.3 thou/uL (0.11-0.59); #Neutrophils 5.4 thou/uL (1.40-6.50); %Basophils 0.4 % (0.0-1.0); %Eosinophils 3.8 % (0.0-10.0); %Lymphocytes 17.4 % (21.0-51.0); %Monocytes 3.9 % (0.0-10.0); %Neutrophils 74.5 % (42.0-75.0); Hemoglobin 8.5 g/dL (12.0-16.0); Mean Corpuscular HGB CONC 34.5 g/dL (32.0-36.0); Mean Corpuscular Hemoglobin 34.9 pg (27.0-31.0); Mean Platelet Volume 7.9 fL (7.4-10.4); Platelet Count 182 10x3/uL (130-400); RBC Distribution Width 12.3 % (11.5-14.5); Red Blood Cell (RBC) Count 2.43 mill/uL (4.20-5.40); White Blood Cell (WBC) Count 7.3 10x3/uL (4.8-10.8)
[2022-08-25 04:18] LABS: Anion Gap 9 mmol/L (10-20); BUN (Urea Nitrogen) 9 mg/dL (9.8-20.1); Calc. Creatinine Clearance 94 mL/min (70-130); Calcium 7.2 mg/dL (7.8-10.44); Carbon Dioxide 19 mmol/L (23-31); Chloride 115 mmol/L (98-107); Estimated GFR 71; Glucose 126 mg/dL (80-115); Potassium 3.4 mmol/L (3.5-5.1); Sodium 140 mmol/L (136-145)
[2022-08-25] MEDS: Levothyroxine Sodium 112 MCG TAB PO SCH (05:25)
[2022-08-25] MEDS: Ketorolac Tromethamine 30 MG/ML VIAL IVP SCH (05:25)
[2022-08-25] MEDS: Pantoprazole 40 MG VIAL IVP SCH (08:22)
[2022-08-25 09:40] VITALS: TEMP 98.2
[2022-08-25 12:07] VITALS: BP 121/58
== END 2022-08-25 11:23 | disposition home or self-care (01) | DRG 328 ==
LOC: SURG A 08-22 06:01 → CCU 08-22 21:20
PROVIDERS: ADMIT Surgery; ATTEND Surgery
PROC: 0D164ZA Bypass Stomach to Jejunum, Percutaneous Endoscopic Approach (ICD-10-PCS; principal; 2022-08-22)
PROC: 0DJ08ZZ Inspection of Upper Intestinal Tract, Via Natural or Artificial Opening Endoscopic (ICD-10-PCS; 2022-08-22)
PROC: 8E0W4CZ Robotic Assisted Procedure of Trunk Region, Percutaneous Endoscopic Approach (ICD-10-PCS; 2022-08-22)
DX: K31.84 Gastroparesis (principal); K31.89 Other diseases of stomach and duodenum; K21.9 Gastro-esophageal reflux disease without esophagitis; E03.9 Hypothyroidism, unspecified; J45.909 Unspecified asthma, uncomplicated; Z96.651 Presence of right artificial knee joint; R13.10 Dysphagia, unspecified; I95.81 Postprocedural hypotension; D64.9 Anemia, unspecified; E66.9 Obesity, unspecified; Z95.0 Presence of cardiac pacemaker; Z98.41 Cataract extraction status, right eye; Z98.42 Cataract extraction status, left eye; Z90.49 Acquired absence of other specified parts of digestive tract; Z79.899 Other long term (current) drug therapy; Z88.1 Allergy status to other antibiotic agents; Z88.6 Allergy status to analgesic agent; Z68.32 Body mass index [BMI] 32.0-32.9, adult
CPT/HCPCS: 36415; 71045; 80048; 80053; 82533; 82805; 83605; 83735; 85014; 85018; 85025; 86850; 86900; 86901; 93005; 94760; C1889; C9113; J1100; J1170; J1200; J1885; J2250; J2370; J2405; J2550; J2704; J2765; J3010; J3480; J3490; J7030; J7042; J7050; P9047; S0028

== ENCOUNTER 2023-01-21 07:45 | Outpatient (CLI) | payer MEDICARE, OTHER | END 2023-01-21 07:46 | disposition home or self-care (01) | LOC: NM 07:45 | PROVIDERS: ATTEND Specialist | DX: M17.11 Unilateral primary osteoarthritis, right knee (principal); T84.84XA Pain due to internal orthopedic prosthetic devices, implants and grafts, initial encounter; Z96.651 Presence of right artificial knee joint | CPT/HCPCS: 78315; A9503 ==

== ENCOUNTER 2023-03-27 08:27 | Outpatient (CLI) | payer MEDICARE, OTHER ==
[2023-03-27] MEDS ORDERED: Iopamidol 370 76% 100 ML VIAL ONE (10:40)
== END 2023-03-27 08:28 | disposition home or self-care (01) ==
LOC: CT 08:27
PROVIDERS: ATTEND Internal Medicine Gastroenterology
DX: R11.2 Nausea with vomiting, unspecified (principal); K63.89 Other specified diseases of intestine; K76.89 Other specified diseases of liver; R16.0 Hepatomegaly, not elsewhere classified; Z93.4 Other artificial openings of gastrointestinal tract status
CPT/HCPCS: 74178; 82565; Q9967

== ENCOUNTER 2023-05-07 07:46 | Day surgery (SDC) | payer MEDICARE, OTHER ==
[2023-05-07] MEDS ORDERED: Cosyntropin 250 MCG VIAL SLOW IVP SCH (08:30)
[2023-05-07] MEDS ORDERED: Sodium Chloride 0.9% (PF) 10 ML VIAL IV SCH (08:30)
[2023-05-07 08:51] VITALS: BP 102/53; TEMP 98.1
[2023-05-07] MEDS ORDERED: FLU VACC QS2023(65UP)/MF59C/PF 60 MCG/0.5 ML SYRINGE IM ONE (09:00)
== END 2023-05-07 11:05 | disposition home or self-care (01) ==
LOC: ONC/OP 07:46
PROVIDERS: ATTEND Internal Medicine Rheumatology
DX: E27.40 Unspecified adrenocortical insufficiency (principal); M81.0 Age-related osteoporosis without current pathological fracture; M47.816 Spondylosis without myelopathy or radiculopathy, lumbar region; Z79.890 Hormone replacement therapy; Z79.899 Other long term (current) drug therapy
CPT/HCPCS: 80400; 82024; 82533; 90694; 96374; G0008; 36415; 90471; J0834

== ENCOUNTER 2023-10-02 17:49 | Outpatient (CLI) | payer MEDICARE, OTHER | END 2023-10-02 17:50 | disposition home or self-care (01) | LOC: SCSRAD 17:49 | PROVIDERS: ATTEND Family Medicine | DX: S29.9XXA Unspecified injury of thorax, initial encounter (principal) ==

== ENCOUNTER 2023-10-10 10:53 | Day surgery (SDC) | payer MEDICARE, OTHER ==
[2023-10-10] MEDS ORDERED: EPINEPHrine 1 MG/ML VIAL ONE (12:48)
[2023-10-10] MEDS ORDERED: Lidocaine 2% PF 5 ML VIAL ONE (12:48)
[2023-10-10] MEDS ORDERED: Bupivacaine 0.25% HCL 30 ML VIAL ONE (12:48)
[2023-10-10 13:15] LABS: #Basophils 0.09 10x3/uL (0.0-0.2); %Basophils 1.5 % (0.0-1.0); %Eosinophils 1.6 % (0.0-10.0); %Lymphocytes 19.8 % (21.0-51.0); %Monocytes 9.5 % (0.0-10.0); %Neutrophils 67.4 % (42.0-75.0); Hematocrit 34.9 % (36.0-47.0); Hemoglobin 11.3 g/dL (12.0-16.0); Mean Corpuscular HGB CONC 32.4 g/dL (32.0-36.0); Mean Corpuscular Hemoglobin 32.3 pg (27.0-31.0); Mean Corpuscular Volume 99.7 fL (78.0-98.0); Mean Platelet Volume 9.8 fL (7.4-10.4); Platelet Count 216 10x3/uL (130-400); RBC Distribution Width 12.4 % (11.5-14.5)
[2023-10-10 13:40] LABS: ALT (SGPT) 30 U/L (8-55); AST (SGOT) 39 U/L (5-34); Albumin 3.5 g/dL (3.4-4.8); Alkaline Phosphatase 52 U/L (40-110); Anion Gap 17 mmol/L (10-20); BUN (Urea Nitrogen) 21 mg/dL (9.8-20.1); Bilirubin, Total 0.9 mg/dL (0.2-1.2); Calc. Creatinine Clearance 0 mL/min (70-130); Calcium 9.2 mg/dL (7.8-10.44); Carbon Dioxide 23 mmol/L (23-31); Chloride 105 mmol/L (98-107); Estimated GFR 57; Globulin 3.7 g/dL (2.4-3.5); Glucose 94 mg/dL (80-115); Potassium 4.8 mmol/L (3.5-5.1); Protein, Total 7.2 g/dL (5.8-8.1); Sodium 140 mmol/L (136-145)
[2023-10-10 13:52] VITALS: BMI 29.0
[2023-10-10] MEDS ORDERED: Lidocaine 1% PF 5 ML VIAL ONE (14:19)
[2023-10-10] MEDS ORDERED: Rocuronium Bromide 10 MG/ML (10ML VIAL) ONE (14:20)
[2023-10-10] MEDS ORDERED: fentaNYL PF 100 MCG/2 ML SYRINGE ONE (14:20)
[2023-10-10] MEDS ORDERED: PHENYLEPHRINE-NS 100 MCG/ML 10 ML SYRINGE ONE (14:20)
[2023-10-10] MEDS ORDERED: Etomidate 40 MG (20 mL) VIAL ONE (14:32)
[2023-10-10] MEDS ORDERED: PROPOFOL 200 MG/20 ML VIAL ONE (14:39)
[2023-10-10] MEDS ORDERED: Dexamethasone 4 mg/ml Vial ONE (14:49)
[2023-10-10] MEDS ORDERED: CEFAZOLIN 1 GM VIAL ONE (14:50)
[2023-10-10] MEDS ORDERED: Vancomycin 1 GM VIAL ONE (16:43)
[2023-10-10] MEDS ORDERED: Ondansetron PF 4 MG/2 ML Vial ONE (17:14)
[2023-10-10] MEDS ORDERED: SUGAMMADEX SODIUM 200 MG/2 ML VIAL ONE (17:16)
[2023-10-10] MEDS ORDERED: HYDROmorphone 2 MG/ML VIAL ONE (17:17)
== END 2023-10-10 19:35 | disposition home or self-care (01) ==
LOC: SDC 10:53
PROVIDERS: ATTEND Surgery
PROC: 0JC70ZZ Extirpation of Matter from Back Subcutaneous Tissue and Fascia, Open Approach (ICD-10-PCS; principal; 2023-10-10)
DX: M79.5 Residual foreign body in soft tissue (principal); E03.9 Hypothyroidism, unspecified; J45.909 Unspecified asthma, uncomplicated; I47.10 Supraventricular tachycardia, unspecified; K21.9 Gastro-esophageal reflux disease without esophagitis; G47.30 Sleep apnea, unspecified; Z79.899 Other long term (current) drug therapy; Z79.51 Long term (current) use of inhaled steroids; Z88.5 Allergy status to narcotic agent; Z88.8 Allergy status to other drugs, medicaments and biological substances; Z98.890 Other specified postprocedural states; Z95.0 Presence of cardiac pacemaker; Z90.49 Acquired absence of other specified parts of digestive tract; Z96.651 Presence of right artificial knee joint
CPT/HCPCS: 20520; 72100; 80053; 85025; 93005; J0171; 93010; J0665; J0690; J1100; J1170; J2001; J2405; J2704; J3370